=== PATIENT | female | born 1965 | race Caucasian/White ===

== ENCOUNTER 2019-10-19 14:05 | Emergency (ER) | payer SELFPAY ==
--- NOTE | 2019-10-19 14:52 | NUR ---
PATIENT LEFT WITHOUT BEING TRIAGED. NO FURTHER CARE PROVIDED FOR PATIENT.
== END 2019-10-19 14:52 | disposition left against medical advice (07) ==
LOC: MED 14:05
DX: Z53.21 Procedure and treatment not carried out due to patient leaving prior to being seen by health care provider (principal)